=== PATIENT | male | born 1995 | race Caucasian/White ===

== ENCOUNTER 2019-07-24 17:28 | Inpatient (IN) ==
[2019-07-24] MEDS ORDERED: Ondansetron 4 MG/2 ML VIAL IVP STA (18:03)
[2019-07-24] MEDS ORDERED: *HR* HYDROmorphone (PF) 1 MG/ML SYRINGE IVP STA ×2 (18:03→19:36)
[2019-07-24] MEDS ORDERED: 0.9 % Sodium Chloride 1,000 ML IVC STA (18:03)
[2019-07-24] MEDS ORDERED: Isovue-370 500 ML BOTTLE IVP ONE (18:23)
[2019-07-24 18:37] LABS: Basophils % 0.1 %; Hematocrit 37.4 % (37.5-50.1); Immature Granulocytes % 0.5 % (0-4); Lymphocytes # 0.8 K/mcL (0.6-4.6); Lymphocytes % 4.5 %; Mean Corpuscular HGB Conc 34.2 g/dL (31.6-35.5); Mean Corpuscular Hemoglobin 31.1 pg (28.0-33.3); Mean Platelet Volume 10.2 fL (9.4-12.4); Monocytes # 1.1 K/mcL (0.0-1.3); Monocytes % 5.9 %; Neutrophils # 16.5 K/mcL (1.6-8.9); Platelet Count 246 K/mcL (140-400); Red Blood Count 4.11 M/mcL (4.19-5.50); Red Cell Distribution Width 11.7 % (11.5-14.5)
[2019-07-24 18:40] LABS: Hemoglobin 12.8 g/dL (12.9-16.9); White Blood Count 18.5 K/mcL (4.3-11.1)
[2019-07-24 18:42] LABS: Prothrombin Time 11.9 Seconds (9.4-12.1)
[2019-07-24] MEDS ORDERED: 0.9 % Sodium Chloride 1,000 ML IVC ONE (18:52)
[2019-07-24 19:03] LABS: Alanine Aminotransferase 15 Units/L (7-52); Albumin 4.5 g/dL (3.5-5.7); Albumin/Globulin Ratio 2.1 (1.1-2.2); Alkaline Phosphatase 45 Units/L (34-104); Aspartate Amino Transferase 21 Units/L (13-39); BUN/Creatinine Ratio 13 (6-26); Bilirubin,Direct 0.3 mg/dL (0.0-0.2); Bilirubin,Indirect 1.9 mg/dL (0.0-1.0); Bilirubin,Total 2.2 mg/dL (0.3-1.0); Blood Urea Nitrogen 13 mg/dL (6-20); Calcium 9.8 mg/dL (8.6-10.3); Carbon Dioxide 23 mEq/L (23-29); Chloride 99 mEq/L (98-107); Globulin 2.1 g/dL (2.4-3.5); Glucose 150 mg/dL (70-105); Lipase 13 Units/L (11-82); Osmolality,Calculated 289 (280-300); Potassium 4.1 mEq/L (3.5-5.1); Sodium 138 mEq/L (136-145); Total Protein 6.6 g/dL (6.4-8.9); eGFR For African Americans > 60 (> 60); eGFR For Non-African Americans > 60 (> 60)
[2019-07-24] MEDS ORDERED: Piperacillin/Tazobactam 3.375 GM in Water for inj. (sterile) 20 ML IVP ONE (20:48)
[2019-07-24] MEDS ORDERED: Acetaminophen IV 1,000 MG/100 ML INFUS..BTL IVPB ONE (21:26)
[2019-07-24] MEDS: 0.9 % Sodium Chloride 1,000 ML IVC SCH (23:30)
[2019-07-25] MEDS ORDERED: Acetaminophen IV 1,000 MG/100 ML INFUS..BTL IVPB STA (07:48)
[2019-07-25] MEDS ORDERED: Ondansetron 4 MG/2 ML VIAL IVP PRN (07:49)
[2019-07-25] MEDS ORDERED: Ondansetron 4 MG/2 ML VIAL IVP STA (07:49)
[2019-07-25] MEDS: 0.9 % Sodium Chloride 1,000 ML IVC SCH ×4 (07:55→15:10)
[2019-07-25 08:19] LABS: Basophils % 0.2 %; Eosinophils % 0.3 %; Hematocrit 28.8 % (37.5-50.1); Immature Granulocytes % 0.6 % (0-4); Lymphocytes # 1.9 K/mcL (0.6-4.6); Lymphocytes % 16.4 %; Mean Corpuscular HGB Conc 35.8 g/dL (31.6-35.5); Mean Corpuscular Hemoglobin 31.4 pg (28.0-33.3); Mean Corpuscular Volume 87.8 fL (83.0-100.0); Mean Platelet Volume 9.8 fL (9.4-12.4); Monocytes # 1.2 K/mcL (0.0-1.3); Monocytes % 10.6 %; Neutrophils # 8.4 K/mcL (1.6-8.9); Platelet Count 188 K/mcL (140-400); Red Blood Count 3.28 M/mcL (4.19-5.50); Red Cell Distribution Width 11.9 % (11.5-14.5); Segmented Neutrophils % 71.9 %; White Blood Count 11.7 K/mcL (4.3-11.1)
[2019-07-25 08:20] LABS: Hemoglobin 10.3 g/dL (12.9-16.9)
[2019-07-25 08:26] LABS: INR 1.3; Prothrombin Time 14.2 Seconds (9.4-12.1)
[2019-07-25] MEDS ORDERED: Ipratropium/Albuterol Neb 3 ML IH ONE (09:16)
[2019-07-25 09:19] LABS: BUN/Creatinine Ratio 13 (6-26); Blood Urea Nitrogen 10 mg/dL (6-20); Calcium 8.6 mg/dL (8.6-10.3); Carbon Dioxide 25 mEq/L (23-29); Chloride 106 mEq/L (98-107); Glucose 97 mg/dL (70-105); Magnesium 1.9 mg/dL (1.6-2.6); Osmolality,Calculated 289 (280-300); Phosphorous 3.7 mg/dL (2.7-4.5); Potassium 3.7 mEq/L (3.5-5.1); Sodium 140 mEq/L (136-145); eGFR For African Americans > 60 (> 60); eGFR For Non-African Americans > 60 (> 60)
[2019-07-25] MEDS: Nicotine 7 MG PATCH.TD24 TD SCH (11:15)
[2019-07-25] MEDS: Pantoprazole 40 MG VIAL IVP SCH (11:15)
[2019-07-25] MEDS: Sucralfate 1 GM TABLET PO SCH ×3 (11:15→21:33)
[2019-07-25] MEDS ORDERED: hydrOXYzine pamoate 25 MG CAPSULE PO PRN (14:23)
[2019-07-25] MEDS ORDERED: Simethicone 80 MG TAB.CHEW PO PRN (14:32)
[2019-07-25] MEDS ORDERED: Orphenadrine 60 MG/2 ML VIAL IVP PRN (14:32)
[2019-07-25] MEDS: Acetaminophen IV 1,000 MG/100 ML INFUS..BTL IVPB SCH ×2 (16:04→21:33)
[2019-07-25] MEDS: Famotidine 20 MG TABLET PO SCH (21:33)
[2019-07-26] MEDS: Acetaminophen IV 1,000 MG/100 ML INFUS..BTL IVPB SCH ×2 (03:42→09:44)
[2019-07-26 04:23] LABS: Basophils % 0.4 %; Eosinophils # 0.2 K/mcL (0.0-0.6); Eosinophils % 2.5 %; Hematocrit 29.9 % (37.5-50.1); Hemoglobin 10.4 g/dL (12.9-16.9); Immature Granulocytes % 0.4 % (0-4); Lymphocytes # 2.5 K/mcL (0.6-4.6); Lymphocytes % 36.2 %; Mean Corpuscular HGB Conc 34.8 g/dL (31.6-35.5); Mean Corpuscular Hemoglobin 31.1 pg (28.0-33.3); Mean Corpuscular Volume 89.5 fL (83.0-100.0); Mean Platelet Volume 10.2 fL (9.4-12.4); Monocytes # 0.7 K/mcL (0.0-1.3); Monocytes % 10.7 %; Neutrophils # 3.4 K/mcL (1.6-8.9); Platelet Count 169 K/mcL (140-400); Red Blood Count 3.34 M/mcL (4.19-5.50); Red Cell Distribution Width 11.8 % (11.5-14.5); Segmented Neutrophils % 49.8 %; White Blood Count 6.9 K/mcL (4.3-11.1)
[2019-07-26 04:36] LABS: BUN/Creatinine Ratio 10 (6-26); Blood Urea Nitrogen 9 mg/dL (6-20); Calcium 9.1 mg/dL (8.6-10.3); Carbon Dioxide 29 mEq/L (23-29); Chloride 104 mEq/L (98-107); Glucose 90 mg/dL (70-105); Osmolality,Calculated 290 (280-300); Potassium 3.6 mEq/L (3.5-5.1); Sodium 141 mEq/L (136-145); eGFR For African Americans > 60 (> 60); eGFR For Non-African Americans > 60 (> 60)
[2019-07-26] MEDS: Pantoprazole 40 MG VIAL IVP SCH (09:44)
[2019-07-26] MEDS: Nicotine 7 MG PATCH.TD24 TD SCH (09:44)
[2019-07-26] MEDS: Famotidine 20 MG TABLET PO SCH (09:44)
[2019-07-26] MEDS: Sucralfate 1 GM TABLET PO SCH ×2 (09:44→11:51)
[2019-07-26] MEDS ORDERED: Ibuprofen 800 MG TABLET PO ONE (10:04)
[2019-07-26] MEDS ORDERED: *HR* OxyCODONE/APAP 5/325 TABLET PO PRN (10:05)
[2019-07-26 11:02] VITALS: BP 101/52
== END 2019-07-26 14:43 | disposition home or self-care (01) | DRG 813 ==
LOC: 3ANU 17:28 → EMEROOARM 17:28 → 3ANU 22:17
PROVIDERS: ADMIT Surgery; ATTEND Surgery

== ENCOUNTER 2019-07-30 08:24 | Observation (INO) ==
[2019-07-30] MEDS ORDERED: Isovue-370 500 ML BOTTLE IVP ONE ×2 (10:02→16:34)
[2019-07-30] MEDS ORDERED: 0.9 % Sodium Chloride 1,000 ML IVC ONE ×2 (10:06→13:02)
[2019-07-30] MEDS ORDERED: *HR* FentaNYL (PF) 100 MCG/2 ML VIAL IVP ONE (10:06)
[2019-07-30] MEDS ORDERED: Ondansetron 4 MG/2 ML VIAL IVP ONE (10:07)
[2019-07-30 10:32] LABS: Basophils % 0.3 %; Eosinophils # 0.2 K/mcL (0.0-0.6); Eosinophils % 1.7 %; Hematocrit 37.5 % (37.5-50.1); Hemoglobin 12.6 g/dL (12.9-16.9); Immature Granulocytes % 0.2 % (0-4); Lymphocytes # 0.9 K/mcL (0.6-4.6); Lymphocytes % 8.5 %; Mean Corpuscular HGB Conc 33.6 g/dL (31.6-35.5); Mean Corpuscular Volume 92.4 fL (83.0-100.0); Mean Platelet Volume 9.4 fL (9.4-12.4); Monocytes % 8.8 %; Neutrophils # 8.8 K/mcL (1.6-8.9); Platelet Count 261 K/mcL (140-400); Red Blood Count 4.06 M/mcL (4.19-5.50); Red Cell Distribution Width 11.7 % (11.5-14.5); Segmented Neutrophils % 80.5 %; White Blood Count 10.9 K/mcL (4.3-11.1)
[2019-07-30 10:53] LABS: Alanine Aminotransferase 11 Units/L (7-52); Albumin 4.9 g/dL (3.5-5.7); Albumin/Globulin Ratio 1.8 (1.1-2.2); Alkaline Phosphatase 52 Units/L (34-104); Aspartate Amino Transferase 19 Units/L (13-39); BUN/Creatinine Ratio 16 (6-26); Bilirubin,Direct 0.5 mg/dL (0.0-0.2); Bilirubin,Indirect 3.2 mg/dL (0.0-1.0); Bilirubin,Total 3.7 mg/dL (0.3-1.0); Blood Urea Nitrogen 15 mg/dL (6-20); Calcium 10.3 mg/dL (8.6-10.3); Carbon Dioxide 30 mEq/L (23-29); Chloride 98 mEq/L (98-107); Globulin 2.7 g/dL (2.4-3.5); Glucose 91 mg/dL (70-105); Lipase 6 Units/L (11-82); Osmolality,Calculated 288 (280-300); Potassium 4.5 mEq/L (3.5-5.1); Sodium 139 mEq/L (136-145); Total Protein 7.6 g/dL (6.4-8.9); eGFR For African Americans > 60 (> 60); eGFR For Non-African Americans > 60 (> 60)
[2019-07-30] MEDS ORDERED: *HR* HYDROmorphone (PF) 1 MG/ML SYRINGE IVP ONE (11:59)
[2019-07-30] MEDS ORDERED: Ketorolac 15 MG/ML VIAL IVP ONE (13:02)
[2019-07-30] MEDS ORDERED: Piperacillin/Tazobactam 3.375 GM in 0.9 % Sodium Chloride Mini Bag 100 ML IVPB ONE (13:08)
[2019-07-30] MEDS ORDERED: Ondansetron 4 MG/2 ML VIAL IVP PRN (14:51)
[2019-07-30] MEDS ORDERED: Naloxone 0.4 MG/ML INJ IVP PRN (14:51)
[2019-07-30] MEDS ORDERED: Ipratropium/Albuterol Neb 3 ML IH PRN (14:53)
[2019-07-30] MEDS: *HR* HYDROcodone/Acet 7.5/325 mg TABLET PO PRN (18:18)
[2019-07-30] MEDS: Piperacillin/Tazobactam 3.375 GM in 0.9 % Sodium Chloride Mini Bag 100 ML IVPB SCH (22:09)
[2019-07-30] MEDS: Sucralfate 1 GM TABLET PO SCH (22:10)
[2019-07-30] MEDS: *HR* Heparin 5,000 UNIT/ML VIAL SQ SCH (22:10)
[2019-07-30] MEDS: Famotidine 20 MG TABLET PO SCH (22:10)
[2019-07-31 04:48] LABS: Basophils % 0.4 %; Eosinophils # 0.4 K/mcL (0.0-0.6); Eosinophils % 5.2 %; Hematocrit 31.1 % (37.5-50.1); Immature Granulocytes % 0.4 % (0-4); Lymphocytes # 1.9 K/mcL (0.6-4.6); Lymphocytes % 24.3 %; Mean Corpuscular HGB Conc 34.1 g/dL (31.6-35.5); Mean Corpuscular Hemoglobin 30.6 pg (28.0-33.3); Mean Corpuscular Volume 89.9 fL (83.0-100.0); Mean Platelet Volume 9.7 fL (9.4-12.4); Monocytes # 0.9 K/mcL (0.0-1.3); Neutrophils # 4.6 K/mcL (1.6-8.9); Platelet Count 234 K/mcL (140-400); Red Blood Count 3.46 M/mcL (4.19-5.50); Red Cell Distribution Width 11.8 % (11.5-14.5); Segmented Neutrophils % 58.7 %; White Blood Count 7.8 K/mcL (4.3-11.1)
[2019-07-31 04:49] LABS: Hemoglobin 10.6 g/dL (12.9-16.9)
[2019-07-31 05:01] LABS: BUN/Creatinine Ratio 16 (6-26); Blood Urea Nitrogen 15 mg/dL (6-20); Calcium 9.4 mg/dL (8.6-10.3); Carbon Dioxide 29 mEq/L (23-29); Chloride 103 mEq/L (98-107); Glucose 86 mg/dL (70-105); Osmolality,Calculated 288 (280-300); Potassium 4.1 mEq/L (3.5-5.1); Sodium 139 mEq/L (136-145); eGFR For African Americans > 60 (> 60); eGFR For Non-African Americans > 60 (> 60)
[2019-07-31] MEDS: *HR* Heparin 5,000 UNIT/ML VIAL SQ SCH (05:54)
[2019-07-31] MEDS: Sucralfate 1 GM TABLET PO SCH ×2 (05:54→09:44)
[2019-07-31] MEDS: Piperacillin/Tazobactam 3.375 GM in 0.9 % Sodium Chloride Mini Bag 100 ML IVPB SCH (05:54)
[2019-07-31] MEDS: Famotidine 20 MG TABLET PO SCH (09:43)
[2019-07-31] MEDS: *HR* HYDROcodone/Acet 7.5/325 mg TABLET PO PRN (09:44)
[2019-07-31 11:02] VITALS: BP 114/46
[2019-07-31] MEDS ORDERED: Aminoglycoside Consult 1 EACH MC ONE (18:49)
== END 2019-07-31 18:50 | disposition home or self-care (01) ==
LOC: EMEROOARM 08:24 → 3BNU 08:24 → SUATTDRO 13:50 → 3BNU 15:05
PROVIDERS: ADMIT Internal Medicine; ATTEND Internal Medicine

== ENCOUNTER 2021-09-17 02:53 | Inpatient (IN) ==
[2021-09-17 03:50] LABS: Basophils % 0.3 %; Eosinophils # 0.1 K/mcL (0.0-0.6); Eosinophils % 0.8 %; Hematocrit 43.1 % (37.5-50.1); Hemoglobin 15.3 g/dL (12.9-16.9); Immature Granulocytes % 0.2 % (0-4); Lymphocytes # 2.9 K/mcL (0.6-4.6); Lymphocytes % 28.8 %; Mean Corpuscular HGB Conc 35.5 g/dL (31.6-35.5); Mean Corpuscular Hemoglobin 31.5 pg (28.0-33.3); Mean Corpuscular Volume 88.9 fL (83.0-100.0); Mean Platelet Volume 9.9 fL (9.4-12.4); Monocytes # 0.8 K/mcL (0.0-1.3); Monocytes % 8.1 %; Neutrophils # 6.3 K/mcL (1.6-8.9); Platelet Count 242 K/mcL (140-400); Red Blood Count 4.85 M/mcL (4.19-5.50); Red Cell Distribution Width 11.1 % (11.5-14.5); Segmented Neutrophils % 61.8 %; White Blood Count 10.1 K/mcL (4.3-11.1)
[2021-09-17 04:06] LABS: Acetaminophen < 10 mcg/mL (10-20); BUN/Creatinine Ratio 21 (6-26); Blood Urea Nitrogen 20 mg/dL (6-20); Calcium 9.7 mg/dL (8.6-10.3); Carbon Dioxide 26 mEq/L (23-29); Chloride 99 mEq/L (98-107); Ethanol < 10 mg/dL (Less than 10); Glucose 96 mg/dL (70-105); Osmolality,Calculated 282 (280-300); Potassium 3.1 mEq/L (3.5-5.1); Salicylate < 2.5 mg/dL (15.0-30.0); Sodium 135 mEq/L (136-145); eGFR For African Americans > 60 (> 60); eGFR For Non-African Americans > 60 (> 60)
[2021-09-17 04:14] LABS: Bilirubin,Urine Negative (Negative); Blood,Urine Negative (Negative); Clarity,Urine Clear (Clear); Color,Urine Colorless (Yellow); Glucose,Urine (UA) Normal (Normal); Ketones,Urine Negative (Negative); Leukocyte Esterase,Urine Negative (Negative); Nitrite,Urine Negative (Negative); PH,Urine 6.5 pH Units (5.0-8.0); Protein,Urine Negative (Neg-Trace); Specific Gravity,Urine 1.008 (1.010-1.025); Urobilinogen,Urine Normal (Normal)
[2021-09-17 04:35] LABS: Amphetamine Screen,Urine Negative ng/mL (Cutoff=1000); Barbiturate Screen,Urine Negative ng/mL (Cutoff=200); Benzodiazepines Screen,Urine Negative ng/mL (Cutoff=200); Cannabinoid Screen,Urine Positive ng/mL (Cutoff = 50); Cocaine Screen,Urine Negative ng/mL (Cutoff= 300); Opiate Screen,Urine Negative ng/mL (Cutoff=300); Phencyclidine Screen,Urine Negative ng/mL (Cutoff=25)
[2021-09-17 06:29] LABS: Influenza A PCR Negative (Negative); Influenza B PCR Negative (Negative); Resp. Syncytial Virus PCR Negative (Negative)
[2021-09-17 06:30] LABS: SARS-CoV-2 by PCR (In House) Negative (Negative)
[2021-09-17] MEDS ORDERED: *HR* LORazepam 1 MG TABLET PO PRN (06:56)
[2021-09-17] MEDS ORDERED: Acetaminophen 325 MG TABLET PO PRN (06:56)
[2021-09-17] MEDS ORDERED: Haloperidol Lactate 5 MG/ML VIAL IM PRN (06:56)
[2021-09-17] MEDS ORDERED: haloperidoL 5 MG TABLET PO PRN (06:56)
[2021-09-17] MEDS ORDERED: *HR* LORazepam 2 MG/ML VIAL IM PRN (06:56)
[2021-09-17] MEDS ORDERED: hydrOXYzine pamoate 25 MG CAPSULE PO PRN (06:56)
[2021-09-17] MEDS: traZODone 50 MG TABLET PO PRN (21:41)
[2021-09-18] MEDS ORDERED: Ibuprofen 400 MG TABLET PO PRN (17:18)
[2021-09-18] MEDS: traZODone 50 MG TABLET PO PRN (23:05)
[2021-09-19] MEDS: traZODone 50 MG TABLET PO PRN (20:44)
[2021-09-20 07:59] VITALS: BP 131/82; PULSE 58; TEMP 98.6; O2SAT 98
== END 2021-09-20 13:25 | disposition home or self-care (01) | DRG 751 ==
LOC: EMEROOARM 02:53 → 1ANU 06:54
PROVIDERS: ADMIT Psychiatry & Neurology Psychiatry; ATTEND Psychiatry & Neurology Psychiatry